=== PATIENT | male | born 1945 | race Caucasian/White ===

== ENCOUNTER 2020-03-30 17:15 | Emergency (ER) | payer MEDICARE, OTHER ==
--- NOTE | 2020-03-30 18:08 | ER Document Report ---
ED Medical Screen (RME) - General Chief Complaint: Dizziness Stated Complaint: LIGHTHEADED,WEAKNESS Time Seen by Provider: 03/30/20 18:06 Primary Care Provider: TALITA COLON DO [Primary Care Provider] - Follow up as needed Mode of Arrival: Ambulatory Information source: Patient Notes: 74-year-old male presented to ED for weakness and lightheadedness after he mowed the grass this morning. He stated he finished before noon and then his evening when he took his blood pressure it was 180/90. He states he is never had high blood pressure before. He states his only medical history is hypothyroid and right hip replaced replacement and tonsils and adenoids. He states he is a former smoker and drinks 1 beer a day. He is alert oriented respirations regular nonlabored speaking in full sentences at this time. I have greeted and performed a rapid initial assessment of this patient. A comprehensive ED assessment and evaluation of the patient, analysis of test results and completion of medical decision making process will be conducted by an additional ED providers. TRAVEL OUTSIDE OF THE [place] IN LAST 30 DAYS: No - Related Data Allergies/Adverse Reactions: sulfamethoxazole [From Septra] Adverse Reaction (Intermediate, Verified 03/28/16 07:54) trimethoprim [From Mayra] Adverse Reaction (Intermediate, Verified 03/28/16 07:54) Home Medications: Levothyroxine Past Medical History - Past Medical History Cardiac Medical History: Denies: Hx Coronary Artery Disease, Hx Heart Attack, Hx Hypertension Pulmonary Medical History: Denies: Hx Asthma, Hx Bronchitis, Hx COPD, Hx Pneumonia Neurological Medical History: Denies: Hx Cerebrovascular Accident, Hx Seizures Malignancy Medical History: Reports Hx Lymphoma, Reports Hx Skin Cancer GI Medical History: Musculoskeltal Medical History: Reports Hx Arthritis - FINGERS AND BACK Infectious Medical History: Past Surgical History: - Immunizations Hx Diphtheria, Pertussis, Tetanus Vaccination: No Physical Exam - Vital signs Vitals: Temp Pulse Resp BP Pulse Ox 98.0 F 60 16 185/90 H 100 03/30/20 17:33 03/30/20 17:33 03/30/20 17:33 03/30/20 17:33 03/30/20 17:33 Course - Vital Signs Vital signs: Temp Pulse Resp BP Pulse Ox 98.0 F 60 16 185/90 H 100 03/30/20 17:33 03/30/20 17:33 03/30/20 17:33 03/30/20 17:33 03/30/20 17:33 Doctor's Discharge - Discharge Referrals: TALITA COLON DO [Primary Care Provider] - Follow up as needed
--- NOTE | 2020-03-30 18:21 | EKG REPORT ---
SEVERITY:- NORMAL ECG - SINUS RHYTHM : Confirmed by: Judah Prabhakar MD 30-Mar-2020 18:20:52
[2020-03-30 18:38] LABS: ABSOLUTE LYMPHOCYTES (AUTO) 0.8 10^3/uL (0.5-4.7); ABSOLUTE MONOCYTES (AUTO) 0.5 10^3/uL (0.1-1.4); ABSOLUTE NEUT (AUTO) 2.9 10^3/uL (1.7-8.2); BASOPHILS % (AUTO) 0.5 % (0-2); HEMATOCRIT 41.9 % (37.9-51.0); HEMOGLOBIN 14.3 g/dL (13.5-17.0); LYMPHOCYTES % (AUTO) 18.8 % (13-45); MEAN CORPUSCULAR HEMOGLOBIN 30.4 pg (27.0-33.4); MEAN CORPUSCULAR VOLUME 89 fl (80-97); MONOCYTES % (AUTO) 10.7 % (3-13); PLATELET COUNT 123 10^3/uL (150-450); RED BLOOD COUNT 4.69 10^6/uL (4.35-5.55); RED CELL DISTRIBUTION WIDTH 14.1 % (11.5-14.0); TOTAL CELLS COUNTED % (AUTO) 100 %; WHITE BLOOD COUNT 4.2 10^3/uL (4.0-10.5)
[2020-03-30 18:41] LABS: APPEARANCE,URINE CLEAR; BILIRUBIN,URINE NEGATIVE (NEGATIVE); COLOR,URINE STRAW; GLUCOSE, URINE NEGATIVE (NEGATIVE); KETONES,URINE NEGATIVE (NEGATIVE); LEUKOCYTE ESTERASE,URINE NEGATIVE (NEGATIVE); NITRITE,URINE NEGATIVE (NEGATIVE); PROTEIN,URINE NEGATIVE (NEGATIVE); URINE SPECIFIC GRAVITY 1.005; UROBILINOGEN,URINE NEGATIVE mg/dL (<2.0)
[2020-03-30 18:58] LABS: ALBUMIN 4.7 g/dL (3.5-5.0); ALKALINE PHOSPHATASE 75 U/L (38-126); ANION GAP 6 (5-19); ASPARTATE AMINO TRANSFERASE 20 U/L (17-59); BILIRUBIN,TOTAL 0.9 mg/dL (0.2-1.3); BLOOD UREA NITROGEN 17 mg/dL (7-20); CALCIUM 9.9 mg/dL (8.4-10.2); CARBON DIOXIDE 28 mmol/L (22-30); CHLORIDE 105 mmol/L (98-107); CREATINE KINASE 75 U/L (55-170); GLUCOSE 103 mg/dL (75-110); POTASSIUM 4.1 mmol/L (3.6-5.0); TOTAL PROTEIN 7.2 g/dL (6.3-8.2)
[2020-03-30] MEDS ORDERED: NORMAL SALINE 500 ML IV ONE (21:09)
--- NOTE | 2020-03-30 21:10 | ER Document Report ---
ED General - General Chief Complaint: Dizziness Stated Complaint: LIGHTHEADED,WEAKNESS Time Seen by Provider: 03/30/20 18:06 Primary Care Provider: TALITA COLON DO [ACTIVE STAFF] - Follow up as needed Mode of Arrival: Ambulatory Information source: Patient, Relative - Spouse Notes: 03/30/20 18:02 - ED Nursing Note by LUIS FERNANDOMARIA E [facility] Num: [id number] : 1945 Patient Age: 74 Patient presents to the ED with complaint of elevated BP. Patient reports onset of increased fatigue and lighthead sensation. patient denies hx of HTN and rep orts he is not currently on BP medication. Patient report symptoms began after mowing the grass [employer]. Patient reports he finished mowing the grass at approximately 1130am. Patient reports he checked his BP at approximately 1500 and found his BP to be elevated. Patient reports one beer daily, denies smoking or recreational drugs. Patient reports hx of hypothyroid condition and is currently taking levothyroxine. Patient denies hx of diabetes, hyperlipidemia. Patient reports hx of R hip replacement in 2016 and tonsillectomy at age 5. Patient is AOx4 with even and unlabored respirations, speaking in clear and complete sentences, nad noted. Ambulatory with even and steady gait. <Entered By JANELL LISA - 03/30/20 18:08 > 74-year-old male presented to ED for weakness and lightheadedness after he mowed the grass this morning. He stated he finished before noon and then his evening when he took his blood pressure it was 180/90. He states he is never had high blood pressure before. He states his only medical history is hypothyroid and right hip replaced replacement and tonsils and adenoids. He states he is a former smoker and drinks 1 beer a day. He is alert oriented respirations regular nonlabored speaking in full sentences at this time. my notes 74-year-old male who was mowing the lawn yesterday in the heat with a lot of sweating return to his lawnmowing earlier today and finished his job. Throughout the day he was feeling quite dizzy and unsteady. He denies any headaches denies any chest pain his lab tests were within normal limits. We advised he and his of these findings. Patient has a history of throat cancer squamous cell and was treated in [place] by Dr. Edge and Dr. Gore with [facility]. This was over 6 years ago. He has been doing well since then. TRAVEL OUTSIDE OF THE [place] IN LAST 30 DAYS: No - HPI Onset: This morning Onset/Duration: Sudden, Persistent Quality of pain: No pain Severity: None Pain Level: Denies - Another day appears PVCs 33 years old is a 30 is being are all Associated symptoms: None Exacerbated by: Denies - all right will take a look at her good start with a COMPUT[employer] TECH[employer] morphine for rate ago Relieved by: Denies Similar symptoms previously: No Recently seen / treated by doctor: No - Related Data Allergies/Adverse Reactions: sulfamethoxazole [From ] Adverse Reaction (Intermediate, Verified 03/28/16 07:54) trimethoprim [From Mayra] Adverse Reaction (Intermediate, Verified 03/28/16 07:54) Home Medications: Levothyroxine Past Medical History - General Information source: Patient - Social History Smoking Status: Former Smoker Cigarette use (# per day): No Chew tobacco use (# tins/day): No Smoking Education Provided: No Frequency of alcohol use: None Drug Abuse: None Lives with: Family Family History: Reviewed & Not Pertinent, Hypertension, Malignancy Patient has suicidal ideation: No Patient has homicidal ideation: No - Past Medical History Cardiac Medical History: Denies: Hx Coronary Artery Disease, Hx Heart Attack, Hx Hypertension Pulmonary Medical History: Denies: Hx Asthma, Hx Bronchitis, Hx COPD, Hx Pneumonia Neurological Medical History: Denies: Hx Cerebrovascular Accident, Hx Seizures Malignancy Medical History: Reports Hx Lymphoma, Reports Hx Skin Cancer GI Medical History: Musculoskeletal Medical History: Reports Hx Arthritis - FINGERS AND BACK Infectious Medical History: Past Surgical History: Reports: Hx Orthopedic Surgery - R hip repair, Hx Tonsillectomy - Immunizations Hx Diphtheria, Pertussis, Tetanus Vaccination: No Review of Systems - Review of Systems Constitutional: See HPI, Weakness, Other - dizziness EENT: No symptoms reported Cardiovascular: No symptoms reported Respiratory: No symptoms reported Gastrointestinal: No symptoms reported Genitourinary: No symptoms reported Male Genitourinary: No symptoms reported Musculoskeletal: No symptoms reported Skin: No symptoms reported Hematologic/Lymphatic: No symptoms reported Neurological/Psychological: See HPI - Dizziness dizziness, Other - Dizziness Physical Exam - Vital signs Vitals: Temp Pulse Resp BP Pulse Ox 98.0 F 60 16 185/90 H 100 03/30/20 17:33 03/30/20 17:33 03/30/20 17:33 03/30/20 17:33 03/30/20 17:33 Interpretation: Hypertensive - General General appearance: Appears well - HEENT Head: Normocephalic, Atraumatic Eyes: Normal Pupils: PERRL Ears: Normal External canal: Normal Tympanic membrane: Serous effusion - Bilaterally with hirsute ear canals bilaterally Pharynx: Normal Neck: Other - Left lateral neck with 4 x 4 and tape - Respiratory Respiratory status: No respiratory distress Chest status: Nontender Breath sounds: Normal Chest palpation: Normal - Cardiovascular Rhythm: Regular Heart sounds: Normal auscultation Murmur: No - Abdominal Inspection: Normal Distension: No distension Bowel sounds: Normal Tenderness: Nontender Organomegaly: No organomegaly - Rectal Prostate: Other - deferred - Genitourinary Scrotum: Other - deferred - Back Back: Normal - Extremities General upper extremity: Normal inspection General lower extremity: Normal inspection - Neurological Neuro grossly intact: Yes Cognition: Normal Orientation: AAOx4 [place] Coma Scale Eye Opening: Spontaneous [place] Coma Scale Verbal: Oriented [place] Coma Scale Motor: Obeys Commands [place] Coma Scale Total: 15 Speech: Normal Motor strength normal: LUE, RUE, LLE, RLE Sensory: Normal, Other - No obvious [place] or dizziness exacerbated by rotation of neck - Psychological Associated symptoms: Normal affect - Skin Skin Temperature: Warm Skin Moisture: Dry Course - Vital Signs Vital signs: Temp Pulse Resp BP Pulse Ox 97.9 F 61 18 153/89 H 100 03/30/20 20:52 03/30/20 20:52 03/30/20 20:52 03/30/20 20:52 03/30/20 20:52 - Laboratory Result Diagrams: 03/30/20 18:18 03/30/20 18:18 Laboratory results interpreted by me: 03/30/20 03/30/20 18:18 18:18 RDW 14.1 H Plt Count 123 L Urine Ascorbic Acid 20 H - EKG Interpretation by Ne EKG shows normal: Sinus rhythm Rate: Normal Discharge - Discharge Clinical Impression: Hypertension Heat exhaustion Qualifiers: Encounter type: initial encounter Qualified Code(s): T67.5XXA - Heat exhaustion, unspecified, initial encounter Acute serous otitis media of both ears Qualifiers: Recurrence: not specified as recurrent Qualified Code(s): H65.03 - Acute serous otitis media, bilateral Disposition: HOME, SELF-CARE Instructions: Dizziness ([facility]) Additional Instructions: Follow-up with personal doctor return to ER as needed encourage fluids try to avoid a lot of heat while cutting the grass this weekend. Take medicine Ant ivert if dizziness is severe otherwise try to continue with oral fluids.. You may apply Bactroban to your nose nightly for least 5 nights and this may make your nose watery but will help clear out any thick mucus caused by grass dust. Prescriptions: Meclizine HCl [Antivert 25 mg Tablet] 25 mg PO TID PRN #21 tablet PRN Reason: Mupirocin [Bactroban 2% Ointment 22 gm] 1 applic NASL HSP PRN #1 tube PRN Reason: Referrals: TALITA COLON DO [ACTIVE STAFF] - Follow up as needed
[2020-03-30 22:17] VITALS: BP 154/83
== END 2020-03-30 22:12 | disposition home or self-care (01) ==
LOC: ER 17:15
DX: I10 Essential (primary) hypertension (principal); T67.5XXA Heat exhaustion, unspecified, initial encounter; X58.XXXA Exposure to other specified factors, initial encounter; H65.03 Acute serous otitis media, bilateral; R42 Dizziness and giddiness; R53.1 Weakness; E03.9 Hypothyroidism, unspecified; Z79.899 Other long term (current) drug therapy; Z87.891 Personal history of nicotine dependence
CPT/HCPCS: 36415; 80053; 81001; 82550; 84484; 85025; 93005; 93010; 99284

== ENCOUNTER 2020-06-15 10:56 | Day surgery (SDC) | payer MEDICARE, OTHER ==
[~2020-06-15 10:56] MED LIST: CHONDR SU A NA/HYALUR INTRAOC KIT (SURGICARE) ONE; DORZOLAMIDE HCL 2%/TIMOLOL MALEAT 0.5% OPH SOLN 10 ML OS PRN; EPINEPHRINE INJ/PF 1 MG/1 ML AMPULE ONE; KETOROLAC TROMETHAMINE 0.45% 4 DROP/0.4 ML DROPERETTE OS PRN; LIDOCAINE 1%/PHENYLEPHRINE 1.5% 1 ML VIAL ONE; PREDNISOLONE ACETATE 1% OPH SUSP 5 ML OS PRN
[2020-06-15] MEDS: BESIFLOXACIN HCL 0.6% OPH SUSP 5 ML BOTTLE OS PRN ×3 (11:48→12:37)
[2020-06-15] MEDS: TROPICAMIDE 1% OPH SOLN 15 ML OS PRN ×3 (11:48→12:00)
[2020-06-15] MEDS: TETRACAINE HCL 0.5% OPH SOLN 4 ML OS PRN ×3 (11:48→12:21)
[2020-06-15] MEDS: CYCLOPENTOLATE 0.2%/PHENYLEPHRINE 1% OPH SOLN 2 ML OS PRN ×3 (11:48→12:00)
[2020-06-15] MEDS ORDERED: FENTANYL CITRATE INJ/PF 100 MCG/2 ML AMPUL ONE (12:07)
[2020-06-15] MEDS ORDERED: MIDAZOLAM 2 MG/2 ML INJ ONE (12:07)
--- NOTE | 2020-06-15 13:30 | Operative Report ---
Operative Report-[facility] Operative Report: DATE OF SURGERY: 06/15/2020 PREOPERATIVE DIAGNOSIS: Cataracts, left eye POSTOPERATIVE DIAGNOSIS: Cataract, left eye OPERATION: Cataract extraction with insertion of an IOL of the left eye. Intraocular Lens Model: [21.0 diopter SN 60 WF] Underwent surgery for difficulty seeing road signs SURGEON: Jose Angel Rehman MD ANESTHESIA: Topical PROCEDURE: After obtaining appropriate consent, the patient's left eye was prepped and draped in a sterile fashion as well as the surgeon in the sterile manner and cataract surgery was started. First a paracentesis blade was used to make a side-port incision. Viscoelastic was used to inflate the anterior chamber. Next a 2.4 mm incision was made with a 2.4 mm blade, clear corneal temporarily. A continuous capsulorrhexis was made using a cystotome and Utrata forceps. Following this hydrodissection was carried out to make the lens fully loose and mobile and it was rotated 90 degrees. Following this, a divide and conquer technique was used to phacoemulsify the lens. The remaining cortex was removed with an irrigation/aspiration. Provisc was instilled into the capsular bag to inflate the bag.The intraocular lens was placed. The remaining viscoelastic material was removed with irrigation/aspiration. Following this, the incision was found to be watertight. Besivance and Cosopt was instilled into the eye and a protective shield was placed over the eye. The patient was returned to the postoperative recovery in a stable condition.
== END 2020-06-15 13:13 ==
LOC: SC 10:56
PROVIDERS: ATTEND Internal Medicine
DX: H25.812 Combined forms of age-related cataract, left eye (principal); H01.00A Unspecified blepharitis right eye, upper and lower eyelids; H01.00B Unspecified blepharitis left eye, upper and lower eyelids; H16.103 Unspecified superficial keratitis, bilateral; H04.123 Dry eye syndrome of bilateral lacrimal glands; M19.90 Unspecified osteoarthritis, unspecified site; E06.9 Thyroiditis, unspecified; Z87.891 Personal history of nicotine dependence; Z83.511 Family history of glaucoma
CPT/HCPCS: 66984; V2632; J2250; J3490 ×2; A9270; J0171; J3010; 142

== ENCOUNTER 2020-07-06 08:36 | Day surgery (SDC) | payer MEDICARE, OTHER ==
[~2020-07-06 08:36] MED LIST changes: -CHONDR SU A NA/HYALUR INTRAOC KIT (SURGICARE) ONE; -DORZOLAMIDE HCL 2%/TIMOLOL MALEAT 0.5% OPH SOLN 10 ML OS PRN; -EPINEPHRINE INJ/PF 1 MG/1 ML AMPULE ONE; +KETOROLAC TROMETHAMINE 0.45% 4 DROP/0.4 ML DROPERETTE OD PRN; -KETOROLAC TROMETHAMINE 0.45% 4 DROP/0.4 ML DROPERETTE OS PRN; -LIDOCAINE 1%/PHENYLEPHRINE 1.5% 1 ML VIAL ONE; +MIDAZOLAM 2 MG/2 ML INJ ONE; -PREDNISOLONE ACETATE 1% OPH SUSP 5 ML OS PRN
[2020-07-06] MEDS: TETRACAINE HCL 0.5% OPH SOLN 4 ML OD PRN ×4 (09:24→09:54)
[2020-07-06] MEDS: CYCLOPENTOLATE 0.2%/PHENYLEPHRINE 1% OPH SOLN 2 ML OD PRN ×3 (09:24→09:36)
[2020-07-06] MEDS: TROPICAMIDE 1% OPH SOLN 15 ML OD PRN ×3 (09:24→09:36)
[2020-07-06] MEDS: BESIFLOXACIN HCL 0.6% OPH SUSP 5 ML BOTTLE OD PRN ×5 (09:25→10:15)
[2020-07-06] MEDS: LIDOCAINE 1%/PHENYLEPHRINE 1.5% 1 ML VIAL ONE ×2 (10:04)
[2020-07-06] MEDS: EPINEPHRINE INJ/PF 1 MG/1 ML AMPULE ONE ×2 (10:05)
[2020-07-06] MEDS: CHONDR SU A NA/HYALUR INTRAOC KIT (SURGICARE) ONE ×2 (10:05)
[2020-07-06] MEDS: DORZOLAMIDE HCL 2%/TIMOLOL MALEAT 0.5% OPH SOLN 10 ML OD PRN ×2 (10:15)
[2020-07-06] MEDS: PREDNISOLONE ACETATE 1% OPH SUSP 5 ML OD PRN ×2 (10:15)
[2020-07-06] MEDS ORDERED: MIDAZOLAM 2 MG/2 ML INJ ONE (10:20)
--- NOTE | 2020-07-06 12:39 | Operative Report ---
Operative Report-[facility] Operative Report: DATE OF SURGERY: 07/06/2020 PREOPERATIVE DIAGNOSIS: Cataract, right eye POSTOPERATIVE DIAGNOSIS: Cataract, right eye OPERATION: Cataract extraction with insertion of an IOL of the right eye. Intraocular Lens Model: [20.0 diopter SN 60 WF] Pt underwent surgery for difficulty with glare from headlights SURGEON: Jose Angel Rehman MD ANESTHESIA: Topical PROCEDURE: After obtaining appropriate consent, the patient's right eye was prepped and draped in a sterile fashion as well as the surgeon in the sterile manner and cataract surgery was started. First a paracentesis blade was used to make a side-port incision. Viscoelastic was used to inflate the anterior chamber. Next a 2.4 mm incision was made with a 2.4 mm blade, clear corneal temporarily. A continuous capsulorrhexis was made using a cystotome and Utrata forceps. Following this hydrodissection was carried out to make the amber fully loose and mobile and it was rotated. Following this, a divide and conquer technique was used to phacoemulsify the amber. The remaining cortex was removed with an irrigation/aspiration. Provisc was instilled into the capsular bag to inflate the bag. The intraocular lens was placed. The remaining viscoelastic material was removed with irrigation/aspiration. Following this, the incision was found to be watertight. Besivance and Cosopt was instilled into the eye and a protective shield was placed over the eye. The patient was reurned to the postoperative recovery in a stable condition.
== END 2020-07-06 11:00 | disposition home or self-care (01) ==
LOC: SC 08:36
PROVIDERS: ATTEND Internal Medicine
DX: H25.811 Combined forms of age-related cataract, right eye (principal); Z96.1 Presence of intraocular lens; M19.90 Unspecified osteoarthritis, unspecified site; E06.9 Thyroiditis, unspecified; Z87.891 Personal history of nicotine dependence
CPT/HCPCS: 66984; V2632; J2250; J3490 ×2; A9270; J0171; 142